=== PATIENT | male | born 1965 ===

== ENCOUNTER 2017-10-16 11:04 | Inpatient (IN) | payer OTHER ==
[2017-10-16 11:14] VITALS: BMI 26.3
[2017-10-16] MEDS ORDERED: Aspirin 325 mg EC Tablets PO ONE (11:46)
[2017-10-16 11:59] LABS: BASO % 0.7 % (0.0-2.0); EOS # 0.1 K/uL (0.0-0.7); EOS % 1.1 % (0.0-4.0); LYMPH # 1.8 K/uL (1.0-4.3); LYMPH % 33.8 % (20.0-40.0); MEAN CELL VOLUME 84.6 fl (80.0-94.0); MEAN CORPUSCULAR HEMOGLOBIN 28.5 pg (27.0-31.0); MEAN CORPUSCULAR HGB CONC 33.6 g/dL (33.0-37.0); MEAN PLATELET VOLUME 7.8 fl (7.2-11.7); MONO # 0.6 K/uL (0.0-0.8); MONO % 10.5 % (0.0-10.0); NEUT # 2.9 K/uL (1.8-7.0); NEUT % 53.9 % (50.0-75.0); NRBC % 0.1 % (0.0-0.0); RBC 5.27 Mil/uL (4.40-5.90); RED CELL DISTRIBUTION WIDTH 14.9 % (11.5-14.5); WHITE BLOOD COUNT 5.3 K/uL (4.8-10.8)
[2017-10-16] MEDS ORDERED: Sodium Chloride 0.9% 1,000 ML IV SCH (12:00)
--- NOTE | 2017-10-16 12:03 | RAD ---
HISTORY: chest pain COMPARISON: No prior. TECHNIQUE: Chest PA and lateral FINDINGS: LUNGS: No active pulmonary disease. PLEURA: No significant pleural effusion identified. No pneumothorax apparent. CARDIOVASCULAR: Normal. OSSEOUS STRUCTURES: No significant abnormalities. VISUALIZED UPPER ABDOMEN: Normal. OTHER FINDINGS: None. IMPRESSION: No active disease.
--- NOTE | 2017-10-16 12:07 | ED PDOC ---
HPI: Chest Pain <Jimmy Mascorro - Last Filed: 10/16/17 14:24> <Franchesca Kim - Last Filed: 10/16/17 15:46> Time Seen by Provider: 10/16/17 11:17 Chief Complaint (Nursing): Chest Pain Additional Complaint(s): 52 YO M w/ PMH of HLD presents to the ER w/ chest pain radiating to his left arm and back. Pain initally started in his left arm 3 days ago. Yesterday patient noted pain on the left side of the chest radiating to the back. He also has been complaining of some difficulty breathing and having some lightheadedness. Currently describes chest pain as a 6/10. Denies any nausea or vomiting. Patient took 81 mg of aspirin last night at 10 pm, however that did not relieve his pain. PMH: HLD PSH: None Allergy: KNDA SH: Patient is a previous smoker. Smoked 1/2 pack per day from [id number]. Denies alcohol or illicit drug use. FH: Maternal: HTN. No risk factor for early heart attacks. (Jimmy Mascorro) Past Medical History Reviewed: Historical Data, Nursing Documentation, Vital Signs - Medical History PMH: Hyperlipidemia - Surgical History Surgical History: No Surg Hx - Family History Family History: States: Hypertension - Living Arrangements Living Arrangements: With Family - Social History Current smoker - smoking cessation education provided: No Ex-Smoker (has not smoked in the last 12 months): No Alcohol: None Drugs: Denies <Jimmy Mascorro - Last Filed: 10/16/17 14:24> Reviewed: Historical Data <Franchesca Kim - Last Filed: 10/16/17 15:46> Vital Signs: Last Vital Signs Temp 98.5 F 10/16/17 14:07 Pulse 77 10/16/17 14:07 Resp 18 10/16/17 14:07 BP 116/74 10/16/17 14:07 Pulse Ox 98 10/16/17 14:24 - Home Medications Home Medications: Ambulatory Orders Medication Instructions Recorded Aspirin [Lo-Dose Aspirin EC] 1 tab PO DAILY 10/16/17 - Allergies Allergies/Adverse Reactions: Allergies Allergy/AdvReac Type Severity Reaction Status Date / Time No Known Allergies Allergy Verified 03/07/18 11:30 VANDA Risk Score for UA/NSTEMI - VANDA Risk Score Age > 64: NO 3 or more CAD Risk Factors: NO Known CAD (Stenosis greater than 50%): NO Aspirin use in past 7 days: YES Severe Angina: YES EKG ST changes greater than 0.5mm: NO (T wave inversion noted) Positive Cardiac Marker: NO VANDA Score: 2 Risk %: 8% <Jimmy Mascorro - Last Filed: 10/16/17 14:24> Curb-65 Severity Score - CURB-65 Severity Score Confusion: No Bun >19mg/dl (>7mmol/L): No Respiratory Rate greater than/equal to 30: No Systolic BP <90 or Diastolic BP less than/equal 60mmHg: No Age >64: No Curb-65 Score: 0 Percentage 30-day mortality: 0.6% <Jimmy Mascorro - Last Filed: 10/16/17 14:24> Wells Criteria for PE - Wells Criteria for Pulmonary Embolism Clinical Signs and Symptoms of DVT: No P.E is #1 Diagnosis, or Equally Likely: No Heart Rate >100: No Immobilization at least 3 days;Surgery previous 4 weeks: No Previous, objectively diagnosed PE or DVT: No Hemoptysis: No Malignancy w/treatment within 6 months, or palliative: No Total Score: 0 <Jimmy Mascorro - Last Filed: 10/16/17 14:24> Review of Systems ROS Statement: Except As Marked, All Systems Reviewed And Found Negative <Jimmy Mascorro - Last Filed: 10/16/17 14:24> ROS Statement: Except As Marked, All Systems Reviewed And Found Negative <Franchesca Kim - Last Filed: 10/16/17 15:46> Physical Exam - Physical Exam Appears: Positive for: No Acute Distress Head Exam: Positive for: NORMAL INSPECTION Skin: Positive for: Normal Color, Warm ENT: Positive for: Normal ENT Inspection Neck: Positive for: Pain On Movement Of Neck (spurling test positve. Cervical paravertebral tenderness) Cardiovascular/Chest: Positive for: Regular Rate, Rhythm, Chest Non Tender. Negative for: JVD Respiratory: Positive for: Normal Breath Sounds. Negative for: Crackles, Rales , Rhonchi, Wheezing Gastrointestinal/Abdominal: Positive for: Normal Exam, Bowel Sounds, Soft Back: Positive for: Other (Left sided scapular region tenderness). Negative for : L CVA Tenderness, R CVA Tenderness Extremity: Positive for: Other (tenderness on left arm on palpation) DTR - Knee (R): 2+ DTR - Knee (L): 2+ DTR - Ankle (R): 2+ DTR - Ankle (L): 2+ Neurologic/Psych: Positive for: Alert, termite control servicer II-XII, Oriented. Negative for: Motor/Sensory Deficits, Facial Droop <Jimmy Mascorro - Last Filed: 10/16/17 14:24> - Laboratory Results Result Diagrams: 10/16/17 11:50 10/16/17 11:50 - ECG ECG: Positive for: Interpreted By Me, Viewed By Me Interpretation Of Abn EKG: T wave inversions noted. No previous EKG for comparison O2 Sat by Pulse Oximetry: 98 Pulse Ox Interpretation: Normal - Radiology X-Ray: Interpreted by Me, Viewed By Me, Read By Radiologist X-Ray Interpretation: No Acute Disease <Jimmy Mascorro - Last Filed: 10/16/17 14:24> - Laboratory Results Result Diagrams: 10/16/17 11:50 10/16/17 11:50 <Franchesca Kim - Last Filed: 10/16/17 15:46> - Progress ED Course And Treament: Patients chest pain subsided with Nitro (Jimmy Mascorro) Medical Decision Making <Jimmy Mascorro - Last Filed: 10/16/17 14:24> <Franchesca Kim - Last Filed: 10/16/17 15:46> Medical Decision Making: EKG: T wave inversion Troponin: Neg x 1 CBC:WNL CMP: WNL Lipid panel: triglycerides: 277, Cholesterol: 222, LDL: 146, HDL: 27 Chest Xray: No acute changes noted Asprin 325 mg Nitorglycerin x1 provided relief Patient has been reassessed after receiving nitroglycerine, which provided relief for the chest pain. Because of the EKG changes and relief with nitroglycerin patient will be admitted under medical service. Cardiology has been consulted (Jimmy Mascorro) Disposition - Patient ED Disposition Is Patient to be Admitted: Yes - Disposition Disposition Time: 14:23 - Pt Status Changed To: Hospital Disposition Of: Observation - POA Core Measure Indicators: Chest Pain <Jimmy Mascorro - Last Filed: 10/16/17 14:24> Discussed With DrYajaira: Isrrael Pate Doctor Will See Patient In The: Hospital Counseled Patient/Family Regarding: Studies Performed, Diagnosis <Franchesca Kim - Last Filed: 10/16/17 15:46> - Clinical Impression Clinical Impression: Chest pain - Disposition Condition: FAIR
[2017-10-16 12:09] LABS: ALB/GLOB RATIO 1.3 (1.0-2.1); ALBUMIN 4.5 g/dL (3.5-5.0); CALCIUM 9.6 mg/dL (8.4-10.2); GFR AFRICAN-AMERICAN > 60; GFR NON-AFRICAN AMERICAN > 60; HDL CHOLESTEROL 27 MG/DL (30-70)
[2017-10-16 12:10] LABS: ALT/SGPT 63 U/L (21-72); AST/SGOT 43 U/L (17-59); BLOOD UREA NITROGEN 11 mg/dl (9-20)
[2017-10-16 12:19] LABS: LDL CHOLESTEROL 146 mg/dL (0-129)
[2017-10-16] MEDS: Enoxaparin 40 mg Syringe SC SCH (17:35)
[2017-10-17 06:06] LABS: HDL CHOLESTEROL 26 MG/DL (30-70)
[2017-10-17 06:08] LABS: T4 7.88 ug/dl (5.5-11.0)
[2017-10-17 06:19] LABS: LDL CHOLESTEROL 126 mg/dL (0-129)
--- NOTE | 2017-10-17 07:44 | CARD ---
APPROVED REPORT EKG Measurement Heart [id number] [place] 140P50 [id number] <Conclusion> Normal sinus rhythm with sinus arrhythmia Cannot rule out Anterior infarct, age undetermined T wave abnormality, consider lateral ischemia Abnormal ECG
--- NOTE | 2017-10-17 07:45 | CARD ---
APPROVED REPORT EKG Measurement Heart [id number] [place] 150P60 [id number] <Conclusion> Normal sinus rhythm with sinus arrhythmia ST elevation, (A finding unchanged fro the EKG of ) Abnormal ECG
[2017-10-17] MEDS: Enoxaparin 40 mg Syringe SC SCH (08:25)
--- NOTE | 2017-10-17 09:26 | CARD ---
APPROVED REPORT EKG Measurement Heart [id number] [place] 154P61 [id number] <Conclusion> Normal sinus rhythm Suspect ant wall CO (R wave decay from V2 to V3) ST & T wave abnormality, consider lateral ischemia Abnormal ECG
--- NOTE | 2017-10-17 14:21 | HP ---
ADMITTING HISTORY AND PHYSICAL HISTORY OF PRESENT ILLNESS: Mr. Walter Garcia is a 52-year-old male who was admitted via the Emergency Room because of left-sided chest pain which started three days prior to presentation associated with numbness on the left upper extremity. He was seen in the Emergency Room and admitted to rule out acute coronary artery syndrome. PAST MEDICAL HISTORY: He has a past medical history of hyperlipidemia. FAMILY HISTORY: Unremarkable. SOCIAL HISTORY: He quit smoking many years ago, does not drink, and does not use alcohol. REVIEW OF SYSTEMS: Essentially unremarkable. PHYSICAL EXAMINATION GENERAL: The patient is alert, oriented, appears to be much more comfortable this morning except for occasional numbness on the left upper extremity. VITAL SIGNS: Blood pressure of 116/74, pulse of 77, respiratory rate of 18, he is afebrile, and O2 saturation of 98% on room air. SKIN: Shows fair turgor. HEENT: Pupils are equal and reactive to light and accommodation. Mouth shows fair hygiene. LUNGS: Clear. HEART: Regular. No murmurs or gallops heard. Bradycardic. ABDOMEN: Soft and nontender. No organomegaly. EXTREMITIES: Shows no edema or cyanosis. CENTRAL NERVOUS SYSTEM: Grossly intact. LABORATORY DATA: Remarkable for an EKG officially read as normal sinus rhythm with ST elevation, unchanged. EKG from 10/16/2017, abnormal EKG. Chest x-ray; no active disease. WBC of 5.3, hemoglobin of 15, and platelet count of 289,000. Sodium of 142, potassium of 4.5, BUN is 11, and creatinine is 0.8. Triglycerides are 278, cholesterol is 199, LDL is 126, and HDL is 26. Troponin is less than 0.012. IMPRESSION: Chest pain rule out acute coronary artery syndrome and hyperlipidemia. PLAN: Cardiology evaluation. Continue therapy as ordered. Isrrael Pate MD
[2017-10-17 15:54] VITALS: BP 111/69; PULSE 69; RESP 17; TEMP 98.5; O2SAT 97
--- NOTE | 2017-10-17 17:45 | CP.PCM.CON ---
Past Patient History - Infectious Disease Hx of Infectious Diseases: None - Past Medical History & Family History Past Medical History?: Yes - Past Social History Smoking Status: Never Smoked - CARDIAC Hx Cardiac Disorders: Yes (HLD) - PULMONARY Hx Respiratory Disorders: No - NEUROLOGICAL Hx Neurological Disorder: No - HEENT Hx HEENT Problems: No - RENAL Hx Chronic Kidney Disease: No - ENDOCRINE/METABOLIC Hx Endocrine Disorders: No - HEMATOLOGICAL/ONCOLOGICAL Hx Blood Disorders: No - INTEGUMENTARY Hx Dermatological Problems: No - MUSCULOSKELETAL/RHEUMATOLOGICAL Hx Musculoskeletal Disorders: No Hx Falls: No - GASTROINTESTINAL Hx Gastrointestinal Disorders: No - GENITOURINARY/GYNECOLOGICAL Hx Genitourinary Disorders: No - PSYCHIATRIC Hx Psychophysiologic Disorder: No Hx Substance Use: No - SURGICAL HISTORY Hx Surgeries: No - ANESTHESIA Hx Anesthesia: No Meds Allergies/Adverse Reactions: Allergies Allergy/AdvReac Type Severity Reaction Status Date / Time No Known Allergies Allergy Verified 10/16/17 11:30 - Medications Medications: Current Medications Aspirin (Aspirin Chewable) 81 mg PO DAILY [facility] Last Admin: 10/17/17 08:25 Dose: 81 mg Atorvastatin Calcium (Lipitor) 20 mg PO DAILY [facility] Last Admin: 10/17/17 14:41 Dose: 20 mg Enoxaparin Sodium (Lovenox) 70 mg SC Q12 [facility] PRN Reason: Protocol Metoprolol Tartrate (Lopressor) 12.5 mg PO BID [facility] Last Admin: 10/17/17 16:51 Dose: 12.5 mg Results - Vital Signs Recent Vital Signs: Last Vital Signs Temp 98.5 F 10/17/17 15:53 Pulse 69 10/17/17 16:51 Resp 17 10/17/17 15:53 BP 111/69 10/17/17 16:51 Pulse Ox 97 10/17/17 15:53 - Labs Result Diagrams: 10/16/17 11:50 10/16/17 11:50 Labs: Laboratory Results - last 24 hr 10/16/17 10/17/17 19:51 04:55 Troponin I < 0.0120 < 0.0120 Triglycerides 278 H Cholesterol 199 LDL Cholesterol Direct 126 HDL Cholesterol 26 L Thyroxine (T4) 7.88 TSH 3rd Generation 0.79 Assessment & Plan (1) Arm numbness left Status: Acute (2) Abnormal EKG Status: Acute (3) Chest pain Status: Acute - Assessment and Plan (Free Text) Plan: pts pain is reproducible with palpation of trap and rider muscles. trop neg x 2. ekg unchanged. mild pectus on physical exam. echo reveals normal diaastolic and systolic fxn. pain occurs more with rest and improves with movement. december d/c f/u 4 weeks motrin daily for 7 days. heat, and physical therapy
[2017-10-17] MEDS ORDERED: Enoxaparin 80 mg Syringe SC SCH (21:00)
--- NOTE | 2017-10-18 10:20 | CARD ---
APPROVED REPORT EXAM: Two-dimensional and M-mode echocardiogram with Doppler and color Doppler. Other Information Quality : GoodRhythm : NSR INDICATION Chest Pain 2D DIMENSIONS IVSd1.03 (0.7-1.1cm)LVDd4.06 (3.9-5.9cm) LVOT Diameter2.08 (1.8-2.4cm)PWd0.98 (0.7-1.1cm) IVSs1.23 (0.8-1.2cm)LVDs2.83 (2.5-4.0cm) FS (%) 30.2 %PWs1.28 (0.8-1.2cm) M-Mode DIMENSIONS Left Atrium (MM)4.14 (2.5-4.0cm)IVSd0.88 (0.7-1.1cm) Aortic Root2.96 (2.2-3.7cm)LVDd5.22 (4.0-5.6cm) Aortic Cusp Exc.2.29 (1.5-2.0cm)PWd0.80 (0.7-1.1cm) IVSs1.29 cmFS (%) 36 % LVDs3.32 (2.0-3.8cm)PWs1.26 cm Mitral Valve MV E Lvkwhcer12.4cm/sMV DECEL [id number] A Gcumlpnb23.2cm/s MV TZJ78xzU/A ratio1.2MVA (PHT)3.94cm2 TDI Lateral E' Peak V14.99cm/sMedial E' Peak V12.55cm/sE/Lateral E'4.3 E/Medial E'5.1 Pulmonary Valve PV Peak Jnqkdwer440.3cm/s Tricuspid Valve TR Peak Ptpzrjty054by/sRAP VDZFJLAJ80dnHfRI Peak Gr.18mmHg VTBZ27fpHl LEFT VENTRICLE The left ventricle is normal size. There is normal left ventricular wall thickness. Left ventricle systolic function is normal. The Ejection Fraction is 65-70%. There is normal LV segmental wall motion. The left ventricular diastolic function is normal. RIGHT VENTRICLE The right ventricle is normal size. There is normal right ventricular wall thickness. The right ventricular systolic function is normal. ATRIA The left atrium size is normal. The right atrium size is normal. AORTIC VALVE The aortic valve is normal in structure. No aortic regurgitation is present. There is no aortic valvular stenosis. MITRAL VALVE The mitral valve is normal in structure. There is no evidence of mitral valve prolapse. There is no mitral valve stenosis. There is no mitral valve regurgitation noted. TRICUSPID VALVE The tricuspid valve is normal in structure. There is trace tricuspid regurgitation. Right ventricular systolic pressure is estimated at 30 mmHg. There is no pulmonary hypertension. PULMONIC VALVE The pulmonary valve is normal in structure. There is no pulmonic valvular regurgitation. GREAT VESSELS The aortic root is normal in size. The IVC is normal in size and collapses >50% with inspiration. PERICARDIAL EFFUSION The pericardium appears normal. <Conclusion> The left ventricle is normal size. There is normal left ventricular wall thickness. There is normal LV segmental wall motion. Left ventricle systolic function is normal. The Ejection Fraction is 65-70%. The left ventricular diastolic function is normal.
== END 2017-10-17 19:30 | disposition home or self-care (01) | DRG 143 ==
LOC: H.ER 11:04 → H.ERHOLD 13:45 → H.TEL 15:27 → OBSVTOIN 10-17 12:44
PROVIDERS: ADMIT Internal Medicine Pulmonary Disease; ATTEND Internal Medicine Pulmonary Disease
DX: R07.9 Chest pain, unspecified (principal); E78.5 Hyperlipidemia, unspecified; R20.0 Anesthesia of skin; Z87.891 Personal history of nicotine dependence; R94.31 Abnormal electrocardiogram [ECG] [EKG]